=== PATIENT | female | born 1985 | race African-American/Black ===

== ENCOUNTER 2017-09-02 10:46 | Emergency (ER) | payer OTHER ==
[~2017-09-02] VITALS: Ht 180.3 cm; Wt 67.1 kg
[2017-09-02 12:16] VITALS: Ht 180.3 cm; Wt 67.1 kg
[2017-09-02 16:38] VITALS: BP 106/51
== END 2017-09-02 16:50 | disposition home or self-care (01) ==
LOC: ED 10:46
DX: J32.9 Chronic sinusitis, unspecified (principal); B34.9 Viral infection, unspecified; J45.909 Unspecified asthma, uncomplicated; M79.7 Fibromyalgia
CPT/HCPCS: J1885; J3010; Q0162